=== PATIENT | male | born 2005 | race African-American/Black ===

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

== ENCOUNTER 2025-09-16 13:45 | Emergency (ER) | payer MEDICAID, OTHER ==
[~2025-09-16] VITALS: Ht 170.2 cm; Wt 81.0 kg
[2025-09-16 13:50] VITALS: O2SAT 100
[2025-09-16 14:53] LABS: BASOPHILS % 0.5 % (0.0-2.0); EOSINOPHILS % 2.1 % (0.0-5.0); HEMATOCRIT. 46.7 % (42.0-52.0); HEMOGLOBIN. 15.2 g/dL (14.0-18.0); LYMPHOCYTES % 40.2 % (20.0-50.0); MEAN PLATELET VOLUME 8.7 fl (7.4-10.4); MONOCYTES % 6.7 % (2.0-8.0); NEUTROPHILS % 50.5 % (40.0-76.0); PLATELET 224 x1000/uL (130-400); RED BLOOD CELL COUNT 5.06 mill/uL (4.7-6.1); RED CELL DISTRIBUTION WIDTH 14.1 % (11.6-14.6)
[2025-09-16 15:08] LABS: CREATININE 1.1 mg/dL (0.6-1.3); UREA NITROGEN BLOOD 10 mg/dL (9-23)
[2025-09-16 16:46] LABS: ETHANOL BLOOD < 10 mg/dL (<10); PROTEIN TOTAL 8.0 g/dL (6.0-8.3)
[2025-09-16 16:47] LABS: TROPONIN I HIGH SENSITIVITY < 4 ng/L (3.0-53)
[2025-09-16 16:48] LABS: ASPARTATE AMINOTRANSFERASE 47 IU/L (<34); BILIRUBIN DIRECT 0.2 mg/dL (<=3.0); BILIRUBIN TOTAL 0.7 mg/dL (0.1-1.0)
[2025-09-16 16:50] LABS: T4 FREE 1.39 ng/dL (0.89-1.76)
[2025-09-16 16:53] LABS: CLARITY URINE CLEAR (CLEAR); COLOR URINE YELLOW (YELLOW); GLUCOSE URINE NEGATIVE (NEGATIVE); KETONES URINE TRACE (NEGATIVE); LEUKOCYTE ESTERASE URINE 1+ (NEGATIVE); NITRITE URINE NEGATIVE (NEGATIVE); OCCULT BLOOD URINE NEGATIVE (NEGATIVE); PH URINE 6.0 (4.5-8.0); PROTEIN URINE NEGATIVE (NEGATIVE); SPECIFIC GRAVITY URINE 1.016 (1.005-1.030); UROBILINOGEN URINE 0.2 E.U./dL (0.2-1.0)
[2025-09-16 16:54] LABS: *AMPHETAMINES SCREEN URINE NEGATIVE (NEGATIVE); *BARBITURATES SCREEN URINE NEGATIVE (NEGATIVE); *BENZODIAZEPINES SCREEN URINE NEGATIVE (NEGATIVE); *COCAINE SCREEN URINE NEGATIVE (NEGATIVE)
[2025-09-16 16:55] LABS: INFLUENZA TYPE A Presumptive Negative (Pres. Neg.)
[2025-09-16 16:55] LABS: CANNABINOID URINE SCREEN PRESUMPTIVE POSITIVE (NEGATIVE); ECSTASY MDMA SCREEN URINE NEGATIVE (NEGATIVE); METHADONE URINE SCREEN NEGATIVE (NEGATIVE); OPIATES URINE SCREEN NEGATIVE (NEGATIVE); PHENCYCLIDINE URINE SCREEN NEGATIVE (NEGATIVE)
[2025-09-16 16:56] LABS: INFLUENZA TYPE B Presumptive Negative (Pres. Neg.)
[2025-09-16] MEDS: IBUPROFEN 400MG TABLET PO ONE (17:11)
[2025-09-16 17:17] LABS: BACTERIA URINE TRACE; RBC URINE 0-2 /hpf (0-2); SQUAMOUS EPITHELIAL CELL URINE FEW /lpf (RARE/1+)
[2025-09-16] MEDS ORDERED: CEPH500C2 MT (17:45)
[2025-09-16] MEDS ORDERED: ASPI-986 MT (17:45)
[2025-09-16] MEDS ORDERED: IBUP-2028 MT (17:45)
[2025-09-16] MEDS: CEFTRIAXONE SODIUM 1G VIAL IM ONE (18:00)
[2025-09-16] MEDS: LIDOCAINE HCL 1% 20ML VIAL INFIL ONE (18:01)
[2025-09-16] MEDS: ACETAMINOPHEN 325MG TABLET PO ONE (18:02)
[2025-09-16 18:14] VITALS: BP 139/88; PULSE 71; RESP 17; TEMP 37; O2SAT 100
[2025-09-16 18:47] LABS: MONOTEST NEGATIVE (NEGATIVE)
== END 2025-09-16 18:16 | disposition home or self-care (01) ==
LOC: ER 13:45
DX: N39.0 Urinary tract infection, site not specified (principal); I10 Essential (primary) hypertension; R06.02 Shortness of breath; F12.90 Cannabis use, unspecified, uncomplicated; Z79.899 Other long term (current) drug therapy; Z20.822 Contact with and (suspected) exposure to COVID-19
CPT/HCPCS: 80076; 80305; 80048; 81003; 80320; 82550; 83880; 84439; 83690; 86141; 84443; 85025; 86308; 87086; 84484; 87804 ×2; 36415; 71045; 93005; 96372; 99285; 87426; J0696; J2003; G0480